=== PATIENT | male | born 1985 | race Caucasian/White ===

== ENCOUNTER 2017-02-13 01:46 | Observation (INO) | payer SELFPAY ==
[2017-02-13] VITALS (8 sets, daily range): BP systolic 116–135; BP diastolic 60–78; PULSE 77–114; TEMP 36.7–37.8; O2SAT 96–99; Ht 162.6 cm; Wt 21.7 kg
[~2017-02-13] VITALS: Ht 162.6 cm; Wt 21.7 kg
[2017-02-13] MEDS ORDERED: MoRPHine SULFATE 10 MG/ML CARP/VIAL IV STA (02:05)
[2017-02-13] MEDS ORDERED: SODIUM CHLORIDE 0.9% 1000ML 1,000 ML IV STA ×2 (02:05→04:18)
[2017-02-13] MEDS ORDERED: ONDANSETRON INJ 2 MG/ML 2 ML VIAL IV STA (02:05)
[2017-02-13] MEDS ORDERED: OPTIRAY 320 IV PRN (02:15)
[2017-02-13 02:27] LABS: BASO % 0.2 %; BASO ABS # 0.04 K/uL (0-0.2); COMPLETE YES; EOS % 0.1 %; HEMATOCRIT 40.8 % (42-52); IG% 0.2 %; LYMPH ABS # 1.11 K/uL (1.2-3.4); MEAN CORPUSCULAR HEMOGLOBIN 31.3 pg (25-34); MEAN CORPUSCULAR HGB CONC 37.3 g/dl (32-36); MEAN PLATELET VOLUME 9.6 fL (7.4-10.4); MONO % 9.9 %; NEUT % 83.6 %; PLATELET COUNT 267 K/uL (130-400); RED BLOOD COUNT 4.86 M/uL (4.7-6.1); WHITE BLOOD COUNT 18.52 K/uL (4.8-10.8)
[2017-02-13 02:49] LABS: ALKALINE PHOSPHATASE 61 U/L (45-117); ALT/SGPT 35 U/L (12-78); AST/SGOT 19 U/L (15-37); BLOOD UREA NITROGEN 11 mg/dl (7-18); BUN/CREATININE RATIO 13.3 (10-20); CALCIUM 8.8 mg/dl (8.5-10.1); CARBON DIOXIDE 28 mmol/L (21-32); CHLORIDE 105 mmol/L (98-107); CREATININE 0.86 mg/dl (0.60-1.40); GLUCOSE 134 mg/dl (70-99); POTASSIUM 3.3 mmol/L (3.5-5.1); SODIUM 142 mmol/L (136-145)
[2017-02-13] MEDS ORDERED: BISM262S7 PO (03:05)
[2017-02-13] MEDS ORDERED: HYDROmorphone INJ 1 MG/ML SYR IV STA (03:18)
[2017-02-13] MEDS ORDERED: CEFOXITIN SOD 2 GM VIAL IV STA (03:37)
[2017-02-13 03:48] LABS: URINE APPEARANCE CLEAR (CLEAR); URINE BILIRUBIN NEG (NEG); URINE COLOR YELLOW; URINE EPITHELIAL CELL AUTO 0-5 /lpf (0-5); URINE NITRITE NEG (NEG); URINE SPECIFIC GRAVITY 1.026 (1.000-1.030); UROBILINOGEN NEG (NEG); ZZUR CULT IF INDIC CLEAN CATCH NO
[2017-02-13 03:49] LABS: MANUAL MICROSCOPIC REQUIRED? NO; REVIEW REQ? NO
--- NOTE | 2017-02-13 05:26 | EMERGENCY ROOM VISIT NOTE ---
History Report prepared by Scribmarissa: Freeman Du Under the Supervision of: Dr. Jae Ramon M.D. First contact with patient: 02:00 Chief Complaint: ABDOMINAL PAIN Stated Complaint: ABDOMINAL PAIN History of Present Illness The patient is a 31 year old male who presents to the Emergency Room with complaints of persistent abdominal pain since 0 today. The pain is severe. The patient has also experienced nausea and vomiting. He denies diarrhea. He also denies fevers, headaches, chest pain, or shortness of breath. Complete history may be limited secondary to language barrier. Source of History: patient History Limited By: language Onset: 1699 today Position: abdomen Symptom Intensity: severe Timing: other (persistent) Associated Symptoms: + nausea, + vomiting, No SOB, No chest pain, No diarrhea, No fevers, No headache Review of Systems ROS may be limited secondary to language barrier. Past Medical & Surgical Medical Problems: (1) No known health problems Family History Patient reports no known family medical history. Social History Smoking Status: Light Tobacco Smoker Housing Status: lives with family Current/Historical Medications Scheduled PRN Bismuth Subsalicylate (Pepto-Bismol), 15 ML PO BID PRN for GI Upset Allergies Coded Allergies: No Known Allergies (Unverified , 02/13/17) Physical Exam Vital Signs Date Time Temp Pulse Resp B/P Pulse Ox O2 Delivery O2 Flow Rate FiO2 02/13/17 01:52 36.6 63 20 108/64 100 Room Air Physical Exam GENERAL: Patient is uncomfortable appearing and in moderate distress. HEENT: No acute trauma, normocephalic atraumatic, mucous membranes moist, no nasal congestion, no scleral icterus. NECK: No stridor, no adenopathy, no meningismus, trachea is midline. LUNGS: No dyspnea. Clear to auscultation and equal bilaterally. No wheeze, no rhonchi. HEART: Regular rate and rhythm. No murmurs, rubs, gallops appreciated. ABDOMEN: Exquisite right lower quadrant tenderness to palpation without diffuse peritonitis, hypoactive bowel sounds. BACK: No midline tenderness, no CVA tenderness EXTREMITIES: Normal motion all extremities, no cyanosis, no edema. NEUROLOGIC: Alert and oriented, no acute motor or sensory deficits, no focal weakness, cranial nerves grossly intact. SKIN: No rash, no jaundice, no diaphoresis. Medical Decision & Procedures ER Provider Diagnostic Interpretation: X ray results are stated below per my interpretation: Indication: Pre-op. Chest: 1 view: No infiltrate, no effusion, normal cardiac border. Radiology results and stated below per my review and radiologist interpretation: CT ABDOMEN & PELVIS: Detailed evaluation of the cecal region is limited by lack of enteric contrast. However the presumed appendix appears to abut the posterolateral aspect of the cecum and is fluid-filled. It is dilated to approximately 1.2 cm in caliber. This is suspicious for appendicitis. Probably mild reactive enteritis at the terminal ileum. Minimal wall thickening of left sided colon suggesting a mild nonspecific colitis. Radiologist Leonard Milton MD. Laboratory Results 02/13/17 02:08 Red Blood Count 4.86, Mean Corpuscular Volume 84.0, Mean Corpuscular Hemoglobin 31.3, Mean Corpuscular Hemoglobin Concent 37.3, Mean Platelet Volume 9.6, Neutrophils (%) (Auto) 83.6, Lymphocytes (%) (Auto) 6.0, Monocytes (%) (Auto) 9.9, Eosinophils (%) (Auto) 0.1, Basophils (%) (Auto) 0.2, Neutrophils # (Auto) 15.47, Lymphocytes # (Auto) 1.11, Monocytes # (Auto) 1.84, Eosinophils # (Auto) 0.02, Basophils # (Auto) 0.04 02/13/17 02:08 Test 02/13/17 02:08 02/13/17 03:30 White Blood Count 18.52 K/uL (4.8-10.8) Red Blood Count 4.86 M/uL (4.7-6.1) Hemoglobin 15.2 g/dL (14.0-18.0) Hematocrit 40.8 % (42-52) Mean Corpuscular Volume 84.0 fL (80-100) Mean Corpuscular Hemoglobin 31.3 pg (25-34) Mean Corpuscular Hemoglobin Concent 37.3 g/dl (32-36) Platelet Count 267 K/uL (130-400) Mean Platelet Volume 9.6 fL (7.4-10.4) Neutrophils (%) (Auto) 83.6 % Lymphocytes (%) (Auto) 6.0 % Monocytes (%) (Auto) 9.9 % Eosinophils (%) (Auto) 0.1 % Basophils (%) (Auto) 0.2 % Neutrophils # (Auto) 15.47 K/uL (1.4-6.5) Lymphocytes # (Auto) 1.11 K/uL (1.2-3.4) Monocytes # (Auto) 1.84 K/uL (0.11-0.59) Eosinophils # (Auto) 0.02 K/uL (0-0.5) Basophils # (Auto) 0.04 K/uL (0-0.2) RDW Standard Deviation 38.9 fL (36.4-46.3) RDW Coefficient of Variation 12.9 % (11.5-14.5) Immature Granulocyte % (Auto) 0.2 % Immature Granulocyte # (Auto) 0.04 K/uL (0.00-0.02) Anion Gap 9.0 mmol/L (3-11) Est Creatinine Clear Calc Drug Dose 102.7 ml/min Estimated GFR () 135.8 Estimated GFR (Non- 117.2 BUN/Creatinine Ratio 13.3 (10-20) Calcium Level 8.8 mg/dl (8.5-10.1) Total Bilirubin 0.4 mg/dl (0.2-1) Direct Bilirubin < 0.1 mg/dl (0-0.2) Aspartate Amino Transf (AST/SGOT) 19 U/L (15-37) Alanine Aminotransferase (ALT/SGPT) 35 U/L (12-78) Alkaline Phosphatase 61 U/L (45-117) Total Protein 7.9 gm/dl (6.4-8.2) Albumin 4.4 gm/dl (3.4-5.0) Lipase 89 U/L (73-393) Chemistry Specimen Hemolysis Urine Color YELLOW Urine Appearance CLEAR (CLEAR) Urine pH 7.0 (4.5-7.5) Urine Specific [place] 1.026 (1.000-1.030) Urine Protein NEG (NEG) Urine Glucose (UA) NEG (NEG) Urine Ketones NEG (NEG) Urine Occult Blood NEG (NEG) Urine Nitrite NEG (NEG) Urine Bilirubin NEG (NEG) Urine Urobilinogen NEG (NEG) Urine Leukocyte Esterase NEG (NEG) Urine WBC (Auto) 0 /hpf (0-5) Urine RBC (Auto) 0-4 /hpf (0-4) Urine Hyaline Casts (Auto) 1-5 /lpf (0-5) Urine Epithelial Cells (Auto) 0-5 /lpf (0-5) Urine Bacteria (Auto) NEG (NEG) Laboratory results as reviewed by me. Medications Administered Medications (Trade) Dose Ordered Sig/Kaley Route Start Time Stop Time Status Last Admin Dose Admin Morphine Sulfate (MoRPHine SULFATE INJ) 8 mg NOW STAT IV 02/13/17 02:05 02/13/17 02:07 DC 02/13/17 02:49 4 MG Ondansetron HCl 4 mg 4 mg NOW STAT IV 02/13/17 02:05 02/13/17 02:07 DC 02/13/17 02:20 4 MG Sodium Chloride (Nss 1000ml) 1,000 ml @ 999 mls/hr Q1H1M STAT IV 02/13/17 02:05 02/13/17 03:05 DC 02/13/17 02:21 999 MLS/HR Hydromorphone HCl (Dilaudid Inj) 1 mg NOW STAT IV 02/13/17 03:18 02/13/17 03:19 DC 02/13/17 03:24 1 MG Cefoxitin Sodium (Mefoxin IV) 2,000 mg NOW STAT IV 02/13/17 03:37 02/13/17 03:38 DC 02/13/17 03:47 2,000 MG Hydromorphone HCl 1 mg 1 mg Q30M PRN IV 02/13/17 04:30 02/27/17 04:29 02/13/17 06:03 1 MG Sodium Chloride (Nss 1000ml) 1,000 ml @ 125 mls/hr Q8H STAT IV 02/13/17 04:18 02/13/17 12:17 02/13/17 04:36 125 MLS/HR ECG Indication: abdominal pain Rate (beats per minute): 64 Rhythm: normal sinus Findings: no acute ischemic change, no ectopy ED Course 0200: The patient was evaluated in room B3b. A complete history and physical exam was performed. 0205: NSS 1000 ml @ 999 mls/hr, Zofran 4 mg IV, Morphine Sulfate 8 mg IV.' 0300: The patient is feeling somewhat better but needs something more for pain. 0318: Dilaudid 1 mg IV. 0327: Mefoxin 2000 mg IV. 0341: Discussed the case with Dr. Taveras, General surgeon. The patient will be evaluated. 0418: NSS 1000 ml @ 125 mls/hr. 0430: Dilaudid 1 mg IV. Medical Decision Differential: Appendicitis, , MSK, Diverticulitis, UTI, Renal Colic, Bowel Obstruction, Aortic Pathology, amongst other pathologies entertained. 31 yr old Syriac speaking only male arrives with acute lower abdominal pain. RLQ TTP with elevated WBC. CT with enlarged appendix concerning for appendicitis. Not septic appearing and pain well controlled with IV narcotics. Will need to go to OR. Given IV mefoxin and pre-op CXR and EKG ordered. Patient stable throughout ED stay. Monitored in ED for several hours prior to going to OR. Consults Time Called: [phone] Consulting Physician: Nitin General surgeon Returned Call: [phone]: Discussed the case with Dr. Taveras, General surgeon. The patient will be evaluated. Impression Primary Impression: Appendicitis Scribe Attestation The scribe's documentation has been prepared under my direction and personally reviewed by me in its entirety. I confirm that the note above accurately reflects all work, treatment, procedures, and medical decision making performed by me. Departure Information Dispostion Being Evaluated By Surgeon Referrals No Doctor, Assigned (PCP) Patient Instructions My [facility] Problem Qualifiers Primary Impression: Appendicitis Appendicitis type: acute appendicitis Acute appendicitis type: with localized peritonitis Qualified Codes: K35.3 - Acute appendicitis with localized peritonitis
[2017-02-13] MEDS: HYDROmorphone INJ 1 MG/ML SYR IV PRN ×3 (06:03→09:32)
--- NOTE | 2017-02-13 06:30 | History and Physical ---
History & Physical Date Feb 13, 2017. History of Present Illness The patient is a 31 year old male with complaints of RLQ pain. severe in nature. Past Medical/Surgical History Medical Problems: (1) No known health problems Additional History Hepatic Disease: No Endocrine Disorder: No Kidney Disease: No Hypertension: No Heart Disease: No Bleeding Tendencies: No Infectious Diseases: No Allergies Coded Allergies: No Known Allergies (Unverified , 02/13/17) Home Medications Scheduled PRN Bismuth Subsalicylate (Pepto-Bismol), 15 ML PO BID PRN for GI Upset Physical Examination Skin: warm/dry Eyes: EOMI Head: normocephalic Neck: supple, no adenopathy Respiratory/Chest: no respiratory distress Cardiovascular: regular rate, rhythm Abdomen / GI: + pertinent finding (+RLQ ttp. + guarding/rebound) Extremities: normal inspection Neurologic/Psych: alert, oriented x 3 Diagnosis acute appendicitis by ct scan Plan of Treatment discussed diagnosis and options via ipad resource specialist teacher discussed risks ( bleeding/infection/blood clots/injury to an organ etc...) questions answered will proceed with lap appy/possible open this am.
--- NOTE | 2017-02-13 06:30 | DIAGNOSTIC IMAGING REPORT ---
CHEST ONE VIEW PORTABLE CLINICAL HISTORY: Pre-op preoperative evaluation COMPARISON STUDY: No previous studies for comparison. FINDINGS: The bones soft tissues and hemidiaphragms are normal. The cardiomediastinal silhouette is normal. The lungs are clear. The pulmonary vasculature is normal. IMPRESSION: Negative chest. Electronically signed by: Jamaal Austin M.D. 02/13/2017 6:28 AM Dictated Date/Time: 02/13/2017 6:28 AM
--- NOTE | 2017-02-13 07:07 | DIAGNOSTIC IMAGING REPORT ---
ABDOMEN AND PELVIS CT WITH IV CONTRAST CT DOSE: 282.15 mGy.cm HISTORY: Pain aliyah-umbilical severe pain TECHNIQUE: Multiaxial CT images of the abdomen and pelvis were performed following the use of intravenous contrast. COMPARISON STUDY: None. FINDINGS: Lung bases are clear. Liver spleen and pancreas are unremarkable. The kidneys enhance uniformly. Bowel pattern is considered nonobstructive. The appendix is fluid-filled and somewhat distended at 11 mm. It is retrocecal in location. No evidence for abscess or collection. Bowel pattern is considered nonobstructive. Bladder is midline. No free fluid within the pelvic cul-de-sac. IMPRESSION: Acute appendicitis. No evidence for abscess or collection. Nonobstructive bowel pattern. Electronically signed by: Jamaal Austin M.D. 02/13/2017 7:05 AM Dictated Date/Time: 02/13/2017 7:00 AM
[2017-02-13] MEDS ORDERED: BUPIVACAINE/EPINEPHRINE 0.5% MPF 1:200,000 30 ML VIAL ONE (10:19)
[2017-02-13] MEDS ORDERED: MIDAZOLAM HCL 1 MG/ML 2ML VIAL ONE (10:27)
[2017-02-13] MEDS ORDERED: ROCURONIUM BROMID 50MG/5ML SYR ONE (10:27)
[2017-02-13] MEDS ORDERED: PROPOFOL IV EMULSION 10 MG/ML 20 ML VIAL IV ONE (10:27)
[2017-02-13] MEDS ORDERED: GLYCOPYRROLATE INJ 0.2 MG/ML VIAL ONE (10:27)
[2017-02-13] MEDS ORDERED: FENTANYL CITRATE INJ 50 MCG/1 ML 2 ML VIAL ONE ×2 (10:27→12:50)
[2017-02-13] MEDS ORDERED: NEOSTIGMINE METHYLSULFATE 5 MG/5 ML SYR ONE (10:27)
[2017-02-13] MEDS ORDERED: LIDOCAINE HCL 2% 2 ML VIAL (20MG/ML) ONE (10:27)
[2017-02-13] MEDS ORDERED: MEPERIDINE HCL 25 MG/ML CARP IV PRN (10:30)
[2017-02-13] MEDS ORDERED: ATROPINE SULFATE 0.1 MG/ML 5ML SYR IV PRN (10:30)
[2017-02-13] MEDS ORDERED: FENTANYL CITRATE INJ 50 MCG/1 ML 2 ML VIAL IV PRN (10:30)
[2017-02-13] MEDS ORDERED: MoRPHine SULFATE 10 MG/ML CARP/VIAL IV PRN (10:30)
[2017-02-13] MEDS ORDERED: EpHEDrine SULFATE INJ 50 MG/ML AMP IV PRN (10:30)
[2017-02-13] MEDS ORDERED: ONDANSETRON INJ 2 MG/ML 2 ML VIAL IV PRN ×2 (10:30→15:00)
[2017-02-13] MEDS ORDERED: SODIUM CHLORIDE 0.9% 1000ML 1,000 ML IV SCH (11:42)
[2017-02-13] MEDS ORDERED: HYDROmorphone HCL 0.5MG/ML 50 ML CASSETTE IV PRN (11:45)
[2017-02-13] MEDS ORDERED: ONDANSETRON INJ 2 MG/ML 2 ML VIAL ONE ×2 (12:07→12:46)
--- NOTE | 2017-02-13 12:25 | [facility] Operative Report ---
Operative Report Operative Date Feb 13, 2017. Pre-Operative Diagnosis Acute appendicitis. Post-Operative Diagnosis acute appendicitis Procedure(s) Performed lap daxa Surgeon Dr. Taveras Fur Glosser Surgeon(s) SALLY Malagon Estimated Blood Loss 5 ml Findings acutely inflammed appendix Specimens A: Appendix Anesthesia get Complication(s) None Disposition Recovery Room / PACU I attest to the content of the Intraoperative Record and any orders documented therein. Any exceptions are noted below.
--- NOTE | 2017-02-13 12:48 | OPERATIVE REPORT ---
DATE OF OPERATION: 02/13/2017 PREOPERATIVE DIAGNOSIS: Acute appendicitis. POSTOPERATIVE DIAGNOSIS: Same. PROCEDURE: Laparoscopic appendectomy. SURGEON: Dr. Taveras. MOTH PROOFER: Johanna Gonzalez PA-C. ESTIMATED BLOOD LOSS: 5 mL COMPLICATION: No immediate. ANESTHESIA: General. The patient tolerated this procedure well. OPERATIVE NOTE: After informed consent was obtained, the patient was taken to the operating suite, placed in supine position. After successful intubation, a Castillo catheter was placed and the abdomen was sterilely prepped and draped in usual fashion. A periumbilical incision made with an 11 blade scalpel and carried down through the soft tissue using electrocautery. Anterior rectus fascia was opened using electrocautery and two #0 Vicryl stay sutures were placed. Peritoneum was elevated with hemostats and incised under direct vision using a Metzenbaum scissors. A finger sweep was performed. A 12 mm Anjel trocar was placed and the abdomen was insufflated to 18 mmHg. Laparoscope was inserted and the abdomen was examined 360 degrees. A suprapubic 5 mm port and left lower quadrant 12 mm port were placed under direct vision. The patient was placed in slight Trendelenburg position slightly airplaned to the left. There was no free fluid in the pelvis or the right lower quadrant. There was a readily visible acutely inflamed appendix. I was able to grasp it and elevate it and pull it medially without any difficulty. There was a very small mesoappendix and I was able to transect the mesoappendix along with the appendix at the base of the cecum with a BRIDGETTE 60 mm mendoza cartridge. This was placed into an EndoCatch bag and removed from the camera port site. Staple line was intact and there was adequate hemostasis. I did run the bowel from the terminal ileum backward for several feet. A quick look around the abdomen showed no other gross abnormality. The appendix was placed into an EndoCatch bag and removed. The trocars were all removed and the abdomen desufflated. The fascia of the camera port as well as the left lower quadrant was closed using 0 Vicryl in a [id number] fashion. The wounds were irrigated and closed using 4-0 Monocryl. Marcaine was injected around them for postoperative analgesia and skin glue used for dressing. The patient was awakened, extubated, and transferred to recovery in stable condition. I attest to the content of the Intraoperative Record and any orders documented therein. Any exceptio ns are noted below.
[2017-02-13] MEDS ORDERED: HYDR-5688 PO (13:37)
--- NOTE | 2017-02-13 13:39 | Discharge Instructions ---
Discharge Instructions Date of Service Feb 13, 2017. Admission Reason for Admission: Abdominal Pain Discharge Discharge Diagnosis / Problem: Abdominal Pain Discharge Goals Goal(s): Decrease discomfort, Improve function Activity Recommendations Activity Limitations: as noted below Lifting Limitations: no more than 10 pounds Exercise/Sports Limitations: until after follow-up appointment May Resume Sexual Activity: after follow-up appointment Shower/Bathe: tomorrow . Instructions / Follow-Up Instructions / Follow-Up Please follow-up with Dr. Taveras in the office in 1-2 weeks. Please call the office at [phone] to schedule an appointment. Any questions or concerns, please call [phone]. Current Hospital Diet Patient's current hospital diet: Discharge Diet Recommended Diet: Regular Diet Procedures Procedures Performed: Laparoscopic appendectomy. Pending Studies Studies pending at discharge: no Medical Emergencies . Who to Call and When: Medical Emergencies: If at any time you feel your situation is an emergency, please call 911 immediately. . Non-Emergent Contact Non-Emergency issues call your: Primary Care Provider, Surgeon Call Non-Emergent contact if: temperature is above 101.5, your pain is not controlled, wound has increased drainage, wound has increased redness . "Provider Documentation" section prepared by Johanna Gonzalez. VTE Core Measure Inpt VTE Proph given/why not?: Unfractionated heparin SQ, SCD's
--- NOTE | 2017-02-13 13:44 | Anesthesiology Progress Note ---
Anesthesia Post Op Note Date & Time Feb 13, 2017 at 13:43 Vital Signs Pain Intensity: 4 Vital Signs Past 12 Hours Date Time Temp Pulse Resp B/P Pulse Ox O2 Delivery O2 Flow Rate FiO2 02/13/17 13:25 37 92 16 121/82 100 Nasal Cannula 2 02/13/17 13:25 121/82 02/13/17 13:23 78 13 02/13/17 13:23 77 13 99 02/13/17 13:20 134/71 02/13/17 13:18 110 21 100 02/13/17 13:18 108 21 02/13/17 13:15 130/68 02/13/17 13:13 91 19 100 02/13/17 13:13 94 19 02/13/17 13:10 149/74 02/13/17 13:08 78 16 02/13/17 13:08 78 16 99 02/13/17 13:05 136/80 02/13/17 13:03 93 13 02/13/17 13:03 94 13 98 02/13/17 13:00 136/78 02/13/17 12:58 92 20 100 02/13/17 12:58 91 20 02/13/17 12:55 148/86 02/13/17 12:53 74 17 02/13/17 12:53 74 17 100 02/13/17 12:50 136/79 02/13/17 12:48 100 24 100 02/13/17 12:48 102 24 02/13/17 12:45 144/86 02/13/17 12:43 98 16 99 02/13/17 12:43 99 16 02/13/17 12:40 136/77 02/13/17 12:38 101 17 100 02/13/17 12:38 101 17 02/13/17 12:35 130/72 02/13/17 12:33 36.9 101 18 130/72 100 Mask 10 02/13/17 12:33 106 25 02/13/17 12:33 106 25 122/75 100 02/13/17 10:18 87 18 111/61 96 02/13/17 09:33 87 18 111/61 96 Room Air 02/13/17 08:50 73 16 119/60 96 Room Air 02/13/17 07:17 70 16 119/59 98 Room Air 02/13/17 07:00 98 Room Air 02/13/17 06:18 74 16 110/74 98 Room Air 02/13/17 01:52 36.6 63 20 108/64 100 Room Air Notes Mental Status: alert / awake / arousable, participated in evaluation Pt Amnestic to Procedure: Yes Nausea / Vomiting: adequately controlled Pain: adequately controlled Airway Patency, RR, SpO2: stable & adequate BP & HR: stable & adequate Hydration State: stable & adequate Anesthetic Complications: no major complications apparent
[2017-02-13] MEDS ORDERED: NURSING VERBAL MED ORDER ONE ×2 (14:45)
[2017-02-13] MEDS: LACTATED RINGER'S 1000ML 1,000 ML IV SCH (19:41)
[2017-02-13] MEDS: MoRPHine SULFATE 4 MG/ML 1 ML CARP\\VIAL IV PRN (19:52)
[2017-02-14] MEDS: LACTATED RINGER'S 1000ML 1,000 ML IV SCH ×3 (00:09→11:36)
[2017-02-14] MEDS: MoRPHine SULFATE 4 MG/ML 1 ML CARP\\VIAL IV PRN (00:09)
[2017-02-14] MEDS: IV FLUIDS COMPLETED PRN ×2 (00:09→06:06)
[2017-02-14] MEDS: HYDROCODONE/ACETAMOPHEN 5/325MG TAB PO PRN ×2 (02:17→06:06)
[2017-02-14 03:36] VITALS: BP 109/63; PULSE 86; TEMP 36.9; O2SAT 97
[2017-02-14 06:17] LABS: BASO % 0.2 %; BASO ABS # 0.03 K/uL (0-0.2); COMPLETE YES; EOS % 0.5 %; HEMATOCRIT 35.7 % (42-52); IG% 0.2 %; LYMPH ABS # 2.18 K/uL (1.2-3.4); MEAN CELL VOLUME 85.4 fL (80-100); MEAN CORPUSCULAR HEMOGLOBIN 30.1 pg (25-34); MEAN CORPUSCULAR HGB CONC 35.3 g/dl (32-36); MEAN PLATELET VOLUME 9.1 fL (7.4-10.4); MONO % 13.9 %; NEUT % 67.2 %; PLATELET COUNT 214 K/uL (130-400); RED BLOOD COUNT 4.18 M/uL (4.7-6.1); WHITE BLOOD COUNT 12.08 K/uL (4.8-10.8)
[2017-02-14 07:35] VITALS: BP 125/75; PULSE 73; TEMP 36.8; O2SAT 98
--- NOTE | 2017-02-14 10:31 | Surgery Progress Note ---
Surgery Progress Note Date of Service Feb 14, 2017. Subjective + feeling well Mild pain but controlled with medications. No nausea. Tolerating diet. Objective Vital Signs: Date Time Temp Pulse Resp B/P Pulse Ox O2 Delivery O2 Flow Rate FiO2 02/14/17 07:57 Room Air 02/14/17 07:35 36.8 73 16 125/75 98 Room Air 02/14/17 03:36 36.9 86 16 109/63 97 Room Air 02/14/17 00:05 Room Air 02/13/17 23:40 37.5 77 16 135/78 99 Room Air 02/13/17 22:20 Room Air 02/13/17 20:30 36.7 80 16 120/73 96 Room Air 02/13/17 17:28 37.8 90 16 127/60 96 Room Air 02/13/17 16:20 37.0 87 16 116/61 99 Nasal Cannula 2.0 02/13/17 15:32 37.5 114 17 134/73 99 Nasal Cannula 2.0 02/13/17 14:56 37.3 107 16 122/65 98 2.0 02/13/17 14:15 Nasal Cannula 2.0 02/13/17 14:15 Nasal Cannula 2.0 02/13/17 14:00 116/61 02/13/17 13:56 89 15 98 02/13/17 13:56 89 15 02/13/17 13:55 116/61 02/13/17 13:51 85 10 99 02/13/17 13:51 85 10 02/13/17 13:50 111/64 02/13/17 13:46 95 12 02/13/17 13:46 95 12 99 02/13/17 13:45 118/64 02/13/17 13:41 85 17 99 02/13/17 13:41 86 17 02/13/17 13:40 116/61 02/13/17 13:36 88 14 99 02/13/17 13:36 86 14 02/13/17 13:35 115/66 02/13/17 13:31 82 15 100 02/13/17 13:31 81 15 02/13/17 13:30 122/60 02/13/17 13:26 77 20 02/13/17 13:26 78 20 100 02/13/17 13:25 37 92 16 121/82 100 Nasal Cannula 2 02/13/17 13:25 121/82 02/13/17 13:23 78 13 02/13/17 13:23 77 13 99 02/13/17 13:20 134/71 02/13/17 13:18 110 21 100 02/13/17 13:18 108 21 02/13/17 13:15 130/68 02/13/17 13:13 91 19 100 02/13/17 13:13 94 19 02/13/17 13:10 149/74 02/13/17 13:08 78 16 02/13/17 13:08 78 16 99 02/13/17 13:05 136/80 02/13/17 13:03 93 13 02/13/17 13:03 94 13 98 02/13/17 13:00 136/78 02/13/17 12:58 92 20 100 02/13/17 12:58 91 20 02/13/17 12:55 148/86 02/13/17 12:53 74 17 02/13/17 12:53 74 17 100 02/13/17 12:50 136/79 02/13/17 12:48 100 24 100 02/13/17 12:48 102 24 02/13/17 12:45 144/86 02/13/17 12:43 98 16 99 02/13/17 12:43 99 16 02/13/17 12:40 136/77 02/13/17 12:38 101 17 100 02/13/17 12:38 101 17 02/13/17 12:35 130/72 02/13/17 12:33 36.9 101 18 130/72 100 Mask 10 02/13/17 12:33 106 25 02/13/17 12:33 106 25 122/75 100 General Appearance: WD/WN, no apparent distress Respiratory/Chest: normal breath sounds, no respiratory distress Cardiovascular: regular rate, rhythm Abdomen: normal bowel sounds, non tender, soft, + distended (mild) Incision(s): clean, dry, intact Extremities: no pedal edema Laboratory Results: Results Past 24 Hours Test 02/14/17 06:04 Range/Units White Blood Count 12.08 4.8-10.8 K/uL Red Blood Count 4.18 4.7-6.1 M/uL Hemoglobin 12.6 14.0-18.0 g/dL Hematocrit 35.7 42-52 % Mean Corpuscular Volume 85.4 80-100 fL Mean Corpuscular Hemoglobin 30.1 25-34 pg Mean Corpuscular Hemoglobin Concent 35.3 32-36 g/dl Platelet Count 214 130-400 K/uL Mean Platelet Volume 9.1 7.4-10.4 fL Neutrophils (%) (Auto) 67.2 % Lymphocytes (%) (Auto) 18.0 % Monocytes (%) (Auto) 13.9 % Eosinophils (%) (Auto) 0.5 % Basophils (%) (Auto) 0.2 % Neutrophils # (Auto) 8.11 1.4-6.5 K/uL Lymphocytes # (Auto) 2.18 1.2-3.4 K/uL Monocytes # (Auto) 1.68 0.11-0.59 K/uL Eosinophils # (Auto) 0.06 0-0.5 K/uL Basophils # (Auto) 0.03 0-0.2 K/uL RDW Standard Deviation 42.0 36.4-46.3 fL RDW Coefficient of Variation 13.4 11.5-14.5 % Immature Granulocyte % (Auto) 0.2 % Immature Granulocyte # (Auto) 0.02 0.00-0.02 K/uL Assessment & Plan s/p lap appy for acute appendicitis. Doing well. OK for discharge today - instructions reviewed with pt's friend Pablo on telephone (pt only speaks mosotho ).
[2017-02-14 12:17] VITALS: BP 124/75; PULSE 64; TEMP 36.8; O2SAT 99
[2017-02-14 12:46] VITALS: BP 124/75; PULSE 64; TEMP 36.8; O2SAT 99
--- NOTE | 2017-02-17 12:23 | DISCHARGE SUMMARY ---
PRIMARY DISCHARGE DIAGNOSIS: Acute appendicitis. PROCEDURE PERFORMED: Laparoscopic appendectomy. HOSPITAL COURSE: The patient is a 31-year-old male who presented to the Emergency Department with 12 hours of right lower quadrant pain. His white count was 18,[address] was consistent with acute appendicitis. He was taken to the operating room that afternoon for laparoscopic appendectomy by Dr. Taveras. The procedure was well tolerated, he was transferred to the surgical floor and observed overnight. On postoperative day #1, he was tolerating diet and oral analgesics. His white count improved to 12,000. He had remained afebrile. He was stable for discharge. DISCHARGE INSTRUCTIONS: Discharge home. Follow up with Dr. Taveras in 2 weeks. DISCHARGE MEDICATIONS: Resume home Pepto-Bismol and [id number] Tylenol or Motrin. [facility]
== END 2017-02-14 14:40 | disposition home or self-care (01) ==
LOC: ENRESERVTM → ENRESERVDT → C.EDB 01:48 → C.MSN 13:14 → EDBEDREQ 13:18 → C.MSN 21:34
PROVIDERS: ADMIT Surgery; ATTEND Surgery
DX: K37 Unspecified appendicitis (principal)